=== PATIENT | male | born 1950 ===

== ENCOUNTER 2023-11-05 14:07 | Emergency (ER) | payer BC, MEDICARE ==
[2023-11-05] MEDS ORDERED: Sodium Chloride 0.9% 10 ML Syringe FLUSH PRN (14:37)
[2023-11-05] MEDS ORDERED: Sodium Chloride 0.9% 2.5 ML Syringe FLUSH PRN (14:37)
[2023-11-05 14:50] LABS: INR 1.01 (0.86-1.11)
== END 2023-11-05 15:47 | disposition left against medical advice (07) ==
LOC: MW.ED 14:07
DX: R05.9 Cough, unspecified (principal); Z95.5 Presence of coronary angioplasty implant and graft; Z90.49 Acquired absence of other specified parts of digestive tract; Z79.899 Other long term (current) drug therapy; R06.02 Shortness of breath; J40 Bronchitis, not specified as acute or chronic; J98.11 Atelectasis
CPT/HCPCS: 36415; 71046; 71046-26; 80053; 85025; 85379; 85610; 99214; 99284